=== PATIENT | female | born 1995 | race Caucasian/White ===

== ENCOUNTER 2020-04-06 17:06 | Emergency (ER) | payer OTHER, SELFPAY ==
[~2020-04-06] VITALS: Ht 157.5 cm; Wt 49.7 kg
[2020-04-06] MEDS ORDERED: NS 1,000 ML IV ONE ×2 (18:00→20:30)
[2020-04-06] MEDS ORDERED: METOCLOPRAMIDE INJ 10MG/2ML VIAL (J2765 PER 1) IV ONE (18:00)
[2020-04-06] MEDS ORDERED: LORazepam 2 MG/ML VIAL IV STA (18:04)
[2020-04-06] MEDS ORDERED: LORazepam 2 MG/ML VIAL As Ordered ONE (18:12)
[2020-04-06 18:15] LABS: BASO % 0.2 % (0.0-1.0); EOS % 0.3 % (0.0-3.0); HEMATOCRIT 42.3 % (36.0-47.0); LYMPH # 2.3 10^3/uL (1.5-5.0); LYMPH % 17.8 % (24.0-44.0); MEAN CORPUSCULAR HEMOGLOBIN 27.8 pg (27.0-33.0); MEAN CORPUSCULAR HGB CONC 33.1 g/dl (32.0-36.5); MEAN CORPUSCULAR VOLUME 84.1 fl (80.0-96.0); MONO # 1.2 10^3/uL (0.0-0.8); MONO % 9.2 % (0.0-5.0); NEUTROPHILS # 9.2 10^3/uL (1.5-8.5); NEUTROPHILS % 71.8 % (36.0-66.0); PLATELET COUNT, AUTOMATED 268 10^3/uL (150-450); RED BLOOD COUNT 5.03 10^6/uL (4.00-5.40); WHITE BLOOD COUNT 12.8 10^3/uL (4.0-10.0)
[2020-04-06 18:29] LABS: INR 0.87
--- NOTE | 2020-04-06 18:37 | REPVR ---
PROCEDURE INFORMATION: Exam: XR Chest, 1 View Exam date and time: 04/06/2020 5:41 PM Age: 24 years old Clinical indication: Other: Withdrawl; Additional info: Chest pain TECHNIQUE: Imaging protocol: XR of the chest Views: 1 view. COMPARISON: No relevant prior studies available. FINDINGS: Lungs: Unremarkable. No consolidation. Pleural space: Unremarkable. No pleural effusion. No pneumothorax. Heart/Mediastinum: Unremarkable. No cardiomegaly. Bones/joints: No acute bone or joint abnormality. IMPRESSION: No acute findings. Electronically signed by: Kwaku Cha On 04/06/2020 18:36:24 PM
--- NOTE | 2020-04-06 18:39 | REPVR ---
PROCEDURE INFORMATION: Exam: US First Trimester, Transabdominal Exam date and time: 04/06/2020 6:20 PM Age: 24 years old Clinical indication: Pain and condition or disease; Lmp or gestational age (weeks): Unknown lmp; Other: Withdrawl; complicated by abdominal or pelvic pain; Lower; First trimester; Other: PT can't remember; ; Additional info: 7 weeks ; Pelvic pain TECHNIQUE: Imaging protocol: Real-time transabdominal obstetrical ultrasound of the maternal pelvis and a first trimester , less than 14 weeks 0 days, with image documentation. COMPARISON: No relevant prior studies available. FINDINGS: Gestation: pole present. Embryonic/ heart rate: cardiac activity present. heart rate 176 bpm. BIOMETRY: Gestational age (AUA): Estimated gestational age by crown-rump length is 8 weeks, 0 days. Export-Rump length: Export-rump length 15.72 mm. MATERNAL: Uterus: Unremarkable. Cervix: Unremarkable. Right adnexa: Unremarkable. Left adnexa: Unremarkable. Intraperitoneal space: No intraperitoneal free fluid. IMPRESSION: Single live intrauterine fetus with an estimated gestational age of 8 weeks, 0 days and a heart rate of 176 bpm. Electronically signed by: Kwaku Cha On 04/06/2020 18:39:13 PM
[2020-04-06 18:54] LABS: ALBUMIN 3.6 GM/DL (3.2-5.2); ALT/SGPT 32 U/L (12-78); BILIRUBIN,DIRECT < 0.1 MG/DL (0.0-0.2); BILIRUBIN,TOTAL 0.3 MG/DL (0.2-1.0); CK-MB VALUE MASS < 1.0 NG/ML (<3.6); CPK CREATINE PHOSPHOKINASE 96 U/L (26-192); HCG, SERUM QUANTITATIVE 77133 MIU/ML; LIPASE 183 U/L (73-393); MB/CK RELATIVE INDEX 1.04 (< OR =4); TOTAL PROTEIN 8.4 GM/DL (6.4-8.2); TROPONIN I < 0.02 NG/ML (< 0.10)
[2020-04-06] MEDS ORDERED: CEPHALEXIN 500 MG CAP PO ONE (21:30)
[2020-04-06] MEDS ORDERED: KEFL500C17 PO (21:33)
[2020-04-06] MEDS ORDERED: REGL10TA6 PO (21:33)
[2020-04-06 21:50] VITALS: BP 122/68
--- NOTE | 2020-04-13 08:01 | ECGEPIP ---
[facility] - ED Test Date: 2020-04-06 Pat Name: SAMAN CHAIREZ Department: Room: - Gender: Female [employer]: humphrey : 1995 Requested By: Bozena Rodríguez Order Number: [id number] Reading MD: Bozena Rodríguez Measurements Intervals [place] Rate: 77 P: 81 OR: 115 QRS: 66 QRSD: 83 T: 42 QT: 366 QTc: 415 Interpretive Statements SINUS RHYTHM WITH SHORT OR INTERVAL BORDERLINE ECG NONSPECIFIC ST T CHANGES NO PRIOR TO COMPARE SEE SCANNED DOWNTIME REPORT
== END 2020-04-06 21:50 | disposition home or self-care (01) ==
LOC: M ED 17:06
DX: O99.321 Drug use complicating pregnancy, first trimester (principal); F11.23 Opioid dependence with withdrawal; O98.411 Viral hepatitis complicating pregnancy, first trimester; B19.20 Unspecified viral hepatitis C without hepatic coma; O23.41 Unspecified infection of urinary tract in pregnancy, first trimester; O99.331 Smoking (tobacco) complicating pregnancy, first trimester; F17.210 Nicotine dependence, cigarettes, uncomplicated; Z3A.08 8 weeks gestation of pregnancy
CPT/HCPCS: 71045; 76801; 80047; 80076; 81001; 82550; 82553; 83690; 84702; 85025; 85610; 87088; 87186; 93005; 93041; 94760; 96361; 96374; 96375; 99284; J2060; J2765